=== PATIENT | male | born 1975 | race Caucasian/White ===

== ENCOUNTER 2020-04-26 09:18 | Outpatient (REF) | payer MEDICAID, SELFPAY | END 2020-04-26 09:19 | disposition home or self-care (01) | LOC: HO.LAB 09:18 | PROVIDERS: Visit Provider Internal Medicine | DX: Z20.828 Contact with and (suspected) exposure to other viral communicable diseases (principal) | CPT/HCPCS: C9803; U0003 ==

== ENCOUNTER 2023-12-08 08:49 | Outpatient (REF) | payer MEDICAID, SELFPAY ==
[2023-12-08 10:21] LABS: MANUAL DIFF FLAG NO
[2023-12-08 10:24] LABS: Basophils Percent Auto 0.7 % (0-2); Eosinophils Absolute Auto 0.1 X10*3/uL (0.0-0.4); Eosinophils Percent Auto 1.2 % (0-4); Hemoglobin 14.8 g/dl (14.0-18.0); Imm Gran Abs Auto 0.01 X10*3/uL (0.00-0.03); Imm Gran Pct Auto 0.2 % (0.0-0.4); Lymphocytes Absolute Auto 1.9 X10*3/uL (1.2-4.9); Lymphocytes Percent Auto 31.2 % (20-40); Mean Corpuscular HGB Conc 32.9 g/dl (31.0-36.0); Mean Corpuscular Hemoglobin 28.9 pg (27.0-33.0); Mean Corpuscular Volume 87.9 fL (80.0-98.0); Mean Platelet Volume 9.3 fL (9.4-12.4); Monocytes Absolute Auto 0.5 X10*3/uL (0.1-1.2); Monocytes Percent Auto 8.8 % (2-11); Neutrophils Absolute Auto 3.5 x10*3/uL (2.0-8.3); Neutrophils Percent Auto 57.9 % (45-73); Platelet Count 319 X10*3/uL (160-400); Red Blood Count 5.12 X10*6/uL (4.60-5.80); Red Cell Distribution Width 14.4 % (11.0-16.0)
[2023-12-08 11:14] LABS: Prostate Specific Antigen 0.58 ng/mL (<0.05-4.0)
[2023-12-08 11:17] LABS: Alanine Aminotransferase 39 U/L (0-40); Albumin Level 3.8 g/dL (3.5-5.0); Alkaline Phosphatase 72 U/L (39-117); Anion Gap 11 (12-20); Aspartate Amino Transferase 23 U/L (5-37); Bilirubin Total 0.5 mg/dL (0.0-1.0); Blood Urea Nitrogen 11 mg/dL (9-16); Carbon Dioxide 29 mmol/L (22-29); Chloride 104 mmol/L (96-108); Cholesterol 177 mg/dL (<200); Estimated Glomerular Filt Rate > 60; Glucose Fasting 113 mg/dL (60-99); HDL Cholesterol 39 mg/dL (>40); LDL Cholesterol Calculated 112 mg/dL (<100); Potassium 4.3 mmol/L (3.3-5.1); Sodium 140 mmol/L (135-145); Total Protein 7.4 g/dL (6.5-8.0); Triglycerides 132 mg/dL (<150); Vitamin D 25-OH Total 24.3 ng/mL (>30)
== END 2023-12-08 08:50 | disposition home or self-care (01) ==
LOC: HO.10HDL 08:49
PROVIDERS: Visit Provider Internal Medicine Medical Oncology
DX: E66.01 Morbid (severe) obesity due to excess calories (principal); E55.9 Vitamin D deficiency, unspecified; E66.9 Obesity, unspecified
CPT/HCPCS: 36415; 80053; 80061; 82306; 84153; 85025

== ENCOUNTER 2025-04-30 09:02 | Outpatient (REF) | payer MEDICAID, SELFPAY ==
--- OUTSIDE RECORDS SUMMARY | 2023-12-07 10:00 | XMS_ITS ---
Author Organization Andrey Vuong III, MD Address [address] [place] [address] [place] [address] Care Team Providers Care Senior Master Scheduler Name Role Phone Dr. Andrey Vuong III Primary Care Provider [phone] Allergies Allergen (clinical drug ingredient) Drug/Non Drug Allergy documented on EMR Reaction Allergy Type Onset Date Status No Known Drug Allergy Unknown Drug Allergy Active Results Component Value Reference Range Notes Lipid Panel Reviewed date:05/24/2024 08:15:10 AM Interpretation: Performing Lab:[address] [id number] Notes/Report: Triglycerides 132 <150 mg/dL Desirable Triglyceride: less than 150 mg/dL Borderline High Triglyceride 150-199 mg/dL High Triglyceride: 200-499 mg/dL Very High Triglyceride: greater than or equal to 5OO mg/dL Cholesterol 177 <200 mg/dL Desirable Cholesterol: less than 200 mg/dL Borderline High Cholesterol: 200-239 mg/dL High Cholesterol: greater than 239 mg/dL LDL Cholesterol Calculated 112 <100 mg/dL Desirable LDL: less than 100 mg/dL Near Optimal/Above Optimal LDL: 110-129 mg/dL Borderline High LDL: 130-159 mg/dL High LDL: 160-189 mg/dL Very High LDL: greater than or equal to 190 mg/dL HDL Cholesterol 39 >40 mg/dL Desirable HDL: greater than 40 mg/dL Note: This HDL assay may give artificially low results in patients with liver disease. Vitamin D 25-OH Total Reviewed date:05/24/2024 08:15:10 AM Interpretation: Performing Lab:[facility], [address] [place] [id number] Notes/Report: Vitamin D 25-OH Total 24.3 >30 ng/mL Health Based Reference Values* < 20 ng/mL Deficient 20-30 ng/mL Insufficient > 30 ng/mL Sufficient *Cristina BYERS. N Engl J Med. 2007;357:266-280 Care must be taken in interpreting Vitamin D results from different laboratories and methodologies. Published data demonstrated that results from patients undergoing hemodialysis may show a negative bias when tested with various automated 25-OH vitamin D assays when compared to LC-MS/MS. When testing samples from patients whose predominant form of Vitamin D is Vitamin D2, such as patients receiving Vitamin D2 supplementation, results that are subtherapeutic should be confirmed with another method such as LC-MS/MS. Reason For Referral Reason screening colonoscop y Diagnosis 1 Morbid obesity (E66. 01) Referral Organization Andrey Vuong III, MD Referring Provider First Name Andrey Referring Provider Last Name Yevgeniy Referring Provider Speciality Internal M edicine Referred Provider Andrey Nieto Referred Provider Specialty Gastroentero logy General Notes Maite Yung CM A 12/16/2023 02:57:25 PM EDT > I called Dr Nieto office made pt appt for 04/18/2024 at 1pm infomation of appt mailed to patient . Ref and progress note faxed to Dr Nieto office Referral Priority Routine Referral Appointment Date 04/18/2024 REASON FOR VISIT Morbid obesity, Chronic cough, Vitamin D deficiency Medications Medication SIG (Take, Route, Fr equency, Duration) Notes Start Date End Date Status Vitamin D 1000 units daily Act matilde Social History Tobacco Use: Social History Observation Description Date Details (start date - stop date) Never Smoker NA - NA Sex Assigned At : Social History Observation Description Sex Assigned At Male Tobacco Use/Smoking Question Answer Notes Patient is a nonsmoker Additional Findings: Tobacco Non-User Aggressive non-smoker Alcohol Screen Question Answer Notes Did you have a drink contain ing alcohol in the past year? Yes How often did you have a dri nk containing alcohol in the past year? 2 to 4 times a month (2 points) How many drinks did you have on a typical day when you were drinking in the past year? 1 or 2 drinks (0 point) How often did you have 6 or more drinks on one occasion in the past year? Never (0 point) Points 2 Interpretation Negative Vital Signs Temperature 98.0 degrees Fahrenheit 12/07/19 24 Blood pressure systolic 159 mm Hg 12/07/19 24 Blood pressure diastolic 85 mm Hg 024 Heart Rate 66 /min 12/07/2023 Height 66 in 12/07/2023 Weight 253 lbs 12/07/2023 BMI 40.83 kg/m2 12/07/2023 Encounters Encounter Location Date Provider Diagnosis Andrey Vuong III, MD [address] [place] [address] [place] [phone] 12/07/2023 Andrey Vuong Morbid obesity E66.0 1 ; Chronic cough R05 and Vitamin D deficiency E55.9 Assessments Encounter Date Diagnosis (ICD Code) Assessment Notes Treatment Notes Treatment Clinical Notes 12/07/2023 Morbid obesity (ICD-10 - E66.01) I have discussed nutrition with him at length. I recommended gradual weight loss of 1/2 pound per week through regular exercise in a diet restricted in fat calories in sodium. A fasting lipid profile will be done with regular blood work. He will be seen periodically to encourage weight loss. I have discussed a possible referral to a weight loss program at one of the local hospitals. I have recommended weight watchers. 12/07/2023 Chronic cough (ICD-10 - R05) This is a long-standing problem. He will be reinvestigated at this time. No change in therapy is necessary. 12/07/2023 Vitamin D deficiency (ICD-10 - E55.9) Comprehensive blood work will vitamin D level has been ordered. My recomdatation was to take 1000 units daily. Plan Of Treatment Medication Medication Name Sig Start Date Stop Date Notes Vitamin D 1000 units colton ly Pending Test Test Name Order Date PROFILE, FASTING (COMPREHENSIVE METABOLI C) 12/07/2023 PSA, TOTAL 12/07/2023 CBC w DIFF 12/07/2023 Referrals Referral Date Details 12/07/2023 12/07/2023, greg danielle colonoscopy , Andrey Nieto Next Appt Details Follow Up: 1 Year, Reason: a nnual exam Provider Name:Andrey Vuong , 05/07/2025 02:15:00 PM, [address] [place] [address] [address], [place], [phone], Provider Name:Andrey Vuong , 04/24/2026 11:00:00 AM, [address] [facility] [address], [place], [phone], Progress Notes * Oliverio PRIETO JrDOB: [birth year] (48 yo M)Acc No.[id number]:12/07/2023 Progress Notes Patient: Oliverio Clark Provider: Teri Vuong MD :1975 A ge:48 Y S ex:Male Date:12/07/2023 Address:[address] [place], [place] [address], [phone] Subjective: * Chief Complaints: * M orbid obesityChronic coughVitamin D deficiency * HPI: C OVID-19 Screening: He returns to the office to resume primary care. He has not been seen in several years. He says he feels healthy and well today. He has no new complaints. His body mass index is 40 but his vital signs are stable.He has had a Gutierrez virus infection for which he took Paxlovid. He is taking vitamin D.He denies any chest pain or dyspnea nausea vomiting diarrhea bleeding skin lesions or joint pain. Questions H ave you experienced fever, chills, cough, sore throat, shortness of breath, difficulty breathing, muscle aches, loss of taste or smell? N o H ave you been exposed to the virus within the last 10 days? N o H ave you travelled internationally in the last 10 days? N o H ave you been exposed to COVID-19 in the past? Y es S JONATHAN Questions: SDOH Questions I n the past year have you been worried about losing your housing? N o I n the past year have you or any family members you live with been unable to get any of the following when it was really needed? Check all that apply: N one * ROS: G eneral/Constitutional: pain o nly normal aches and pains. C hills d enies.?Fatigue a dmits. F ever d enies. E NT: Decreased hearing d enies. R espiratory: Cough n on-productive. C ardiovascular: Chest pain with exertion d enies. D yspnea on exertion?denies. S hortness of breath d enies. G astrointestinal: Constipation o ccasional. D ecreased appetite d enies. D iarrhea d enies. H eartburn d enies. N ausea d enies. R ectal bleeding d enies. V omiting d enies. H ematology: bruising d enies. p etechiae d enies. S wollen glands n one have been noted. G enitourinary: Frequent urination o nce a night. M usculoskeletal: Muscle aches d enies. P ainful joints d enies. S ciatica d enies. W eakness d enies. S kin: Itching d enies. R levar d enies. S kin lesion(s)?denies. N eurologic: Difficulty speaking d enies. D izziness d enies.?Headache d enies. L ow back pain d enies. P sychiatric: Depressed mood d enies. * Medical History: * Surgical History: V astectomy, ental extraction 2021 * Hospitalization/Major Diagno stic Procedure: D enies Past Hospitalization * Family History: F ather: 87 yrs, Diabetes mellitus, hypertension, COPD, lives in a group home, diagnosed with DM, CVD, HTN. M other: alive 83 yrs, Fractured arm, history of stroke, diagnosed with CVD. C hildren: alive. 2 sister(s) - healthy. 1 son(s) , 2 daughter(s) - healthy. . There is no history of cancer, substance abuse, addiction or mental [id number]. * Social History: T obacco Use: T obacco Use/Smoking P atient is a n onsmoker A dditional Findings: Tobacco Non-User A ggressive non-smoker D rugs/Alcohol: D rugs H ave you used drugs other than those for medical reasons in the past 12 months? N o Alcohol Screen D id you have a drink containing alcohol in the past year? Y es H ow often did you have a drink containing alcohol in the past year? 2 to 4 times a month (2 points) H ow many drinks did you have on a typical day when you were drinking in the past year? 1 or 2 drinks (0 point) H ow often did you have 6 or more drinks on one occasion in the past year? 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 He has no occupational exposures. He is to Nisha. He has 3 children, 2 sons and a daughter. He was born in [place]. * Medications: T akingVitamin D , Notes: 1000 units dailyTaking Vitamin D , Notes: 1000 units dailyDiscontinuedPaxlovid (300/100) 20 x 150 MG & 10 x 100MG Tablet Therapy Pack as directed Orally twice a dayMedication List reviewed and reconciled with the patientDiscontinued Paxlovid (300/100) 20 x 150 MG & 10 x 100MG Tablet Therapy Pack as directed Orally twice a dayMedication List reviewed and reconciled with the patient * Allergies: N o Known Drug Allergyno[Allergies Verified] Objective: * Vitals: H t: 66, Wt: 253, BMI:40.83, BP: 159/85, HR: 66, Temp: 98.0, [id number]. * Examination: G eneral Examination: GENERAL APPEARANCE: p leasant, well nourished, well developed, in no acute distress, calm and relaxed , morbidly obese , man. HEAD: a traumatic, normocephalic. EYES: e nathen, perrla, anicteric, conjugate. EARS: n ormal. NOSE: s eptum intact. ORAL CAVITY: n ormal, unremarkable. NECK/THYROID: n o jugular venous distention, no carotid bruit, thyroid normal. LYMPH NODES: n o enlarged lymph nodes,spleen normal. SKIN: n o suspicious lesions, anicteric. HEART: n o clicks, gallops, murmurs, or rubs, regular rhythm, S1, S2 normal, no s3, or vascular bruits. LUNGS: c lear to auscultation . BREASTS: no masses palpable bilaterally. ABDOMEN: b owel sounds normal, no ascites, no organomegaly, no mass. RECTAL EXAM: D eferred to upcoming colonoscopy. MUSCULOSKELETAL: e xtremities unremarkable, no clubbing, cyanosis or edema. PERIPHERAL PULSES: n ormal. NEUROLOGIC: a lert and oriented, cranial nerves 2-12 grossly intact, deep tendon reflexes 2+ symmetrical, motor strength normal upper and lower extremities, sensory exam intact. PSYCH: a lert, oriented , thought process logical, goal directed , speech clear , mood/affect full range , judgement and insight good , good eye contact , cooperative with exam , cognitive function intact. Assessment: * Assessment: 1. Danielle orbid obesity - E66.01 (Primary), I have discussed nutrition with him at length. I recommended gradual weight loss of 1/2 pound per week through regular exercise in a diet restricted in fat calories in sodium. A fasting lipid profile will be done with regular blood work. He will be seen periodically to encourage weight loss. I have discussed a possible referral to a weight loss program at one of the local hospitals. I have recommended weight watchers. 2 . C hronic cough - R05, This is a long-standing problem. He will be reinvestigated at this time. No change in therapy is necessary. 3 . V itamin D deficiency - E55.9, Comprehensive blood work will vitamin D level has been ordered. My recomdatation was to take 1000 units daily. Plan: * Treatment: Value Reference Range T riglycerides 132 <150 - mg/dL * C holesterol 177 <200 - mg/dL * L DL Cholesterol Calculated 112 H <100 - mg/dL * H DL Cholesterol 39 L >40 - mg/dL ?LAB: Vitamin D 25-OH Total* Value Reference Range V itamin D 25-OH Total 24.3 L >30 - ng/mL ? Referral To:Andrey Nieto??Gastroenterology ?Reason:screening colonoscopy 2.?Vitamin D deficiency?LAB: PROFILE, FASTING (COMPREHENSIVE METABOLIC) ?LAB: PSA, TOTAL ?LAB: CBC w DIFF ?LAB: Lipid Panel* Value Reference Range T riglycerides 132 <150 - mg/dL * C holesterol 177 <200 - mg/dL * L DL Cholesterol Calculated 112 H <100 - mg/dL * H DL Cholesterol 39 L >40 - mg/dL ?LAB: Vitamin D 25-OH Total* Value Reference Range V itamin D 25-OH Total 24.3 L >30 - ng/mL * Procedure Codes: * Preventive Medicine: Counseling: C are goal follow-up plan: Counseling for abnormal BMI given Y es Above Normal BMI Follow-up D ietary management education, guidance, and counseling, Dietary needs education, Exercise promotion: strength training, Exercise promotion: stretching, Feeding regime, Giving encouragement to exercise, Lifestyle education regarding diet, Nutrition / feeding management, Nutrition therapy, Prescribed activity/exercise education, Prescribed diet education, Prescribed dietary intake, Special diet education, Weight monitoring , Intervention, Order not done: Medical or Other reason not done * Follow Up: 1 Year (Reason: annual exam) * Images: * Sign off status: Completed true * Provider: Teri Vuong MD Date: 0 12/07/2023 Generated for Printi ng/Facharlyg/eTransmitting on: 1 07/01/2024 10:32 AM EST History and Physical Notes * HPI (History of Present Illness) Category Sub-Category Detail Notes COVID-19 Screening Questions Have you had any new onset fever, chills, cough, congestion, sore throat, shortness of breath, muscle aches?: No Have you been exposed to the virus withi n the last 10 days?: No Have you travelled internationally in [facility] last 10 days?: No Have you been exposed to COVID-19 in the past?: Yes SDOH Questions SDOH Questions In the past year have you been worried about losing your housing?: No In the past year have you or any family members you live with been unable to get any of the following when it was really needed? Check all that apply:: None Examination Category Sub-Category Detail Notes General Examination GENERAL APPEARANCE: pleasant , well nourished, well developed, in no acute distress, calm and relaxed , morbidly obese , man HEAD: atraumatic, normocep halic EYES: eomi, perrla, anicte erin, conjugate EARS: normal NOSE: septum intact NECK/THYROID: no jugular venous di stention, no carotid bruit, thyroid normal HEART: no clicks, gallops, murmurs, or rubs, regular rhythm, S1, S2 normal, no s3, or vascular bruits LUNGS: clear to auscultatio n ABDOMEN: bowel sounds normal, no ascites, no organomegaly, no mass NEUROLOGIC: alert and oriented, cranial nerves 2-12 grossly intact, deep tendon reflexes 2+ symmetrical, motor strength normal upper and lower extremities, sensory exam intact SKIN: no suspicious lesion s, anicteric PERIPHERAL PULSES: normal BREASTS: no masses palpable b ilaterally MUSCULOSKELETAL: extremities unremark able, no clubbing, cyanosis or edema LYMPH NODES: no enlarged lymph no ellen,spleen normal RECTAL EXAM: Deferred to upcoming colonoscopy PSYCH: alert, oriented , th ought process logical, goal directed , speech clear , mood/affect full range , judgement and insight good , good eye contact , cooperative with exam , cognitive function intact ORAL CAVITY: normal, unremarkable Consultation Request Notes Referral Date Referring Provider Referred Provider Not es 12/07/2023 Andrey Vuong Robert screening col onoscopy
[2025-04-30 09:26] LABS: MANUAL DIFF FLAG NO
[2025-04-30 09:46] LABS: Hematocrit 47.2 % (42.0-52.0); Hemoglobin 15.5 g/dl (14.0-18.0); Imm Gran Abs Auto 0.01 X10*3/uL (0.00-0.03); Imm Gran Pct Auto 0.2 % (0.0-0.4); Lymphocytes Absolute Auto 1.6 X10*3/uL (1.2-4.9); Mean Corpuscular HGB Conc 32.8 g/dl (31.0-36.0); Mean Corpuscular Hemoglobin 28.5 pg (27.0-33.0); Mean Corpuscular Volume 86.9 fL (80.0-98.0); NRBC Abs Auto 0.000 X10*3/uL (0.0-0.012); NRBC Pct Auto 0.0 /100WBC (0.0-0.2); Platelet Count 316 X10*3/uL (160-400); Red Blood Count 5.43 X10*6/uL (4.60-5.80); White Blood Count 5.6 X10*3/uL (4.8-10.8)
[2025-04-30 10:31] LABS: Alanine Aminotransferase 59 U/L (0-40); Albumin Level 4.2 g/dL (3.5-5.0); Alkaline Phosphatase 86 U/L (39-117); Anion Gap 11 (12-20); Aspartate Amino Transferase 40 U/L (5-37); Blood Urea Nitrogen 15 mg/dL (9-16); Calcium 9.1 mg/dL (8.4-10.2); Carbon Dioxide 28 mmol/L (22-29); Chloride 106 mmol/L (96-108); Cholesterol 185 mg/dL (<200); Estimated Glomerular Filt Rate > 60; HDL Cholesterol 43 mg/dL (>40); Potassium 4.7 mmol/L (3.3-5.1); Sodium 140 mmol/L (135-145); Total Protein 7.8 g/dL (6.5-8.0); Triglycerides 101 mg/dL (<150)
[2025-04-30 10:42] LABS: Prostate Specific Antigen 0.77 ng/mL (<0.05-4.0)
== END 2025-04-30 09:03 | disposition home or self-care (01) ==
LOC: HO.LAB 09:02
PROVIDERS: PCP Internal Medicine Medical Oncology; Visit Provider Internal Medicine Medical Oncology
DX: Z00.00 Encounter for general adult medical examination without abnormal findings (principal); N40.0 Benign prostatic hyperplasia without lower urinary tract symptoms; E66.01 Morbid (severe) obesity due to excess calories; E55.9 Vitamin D deficiency, unspecified
CPT/HCPCS: 36415; 80053; 80061; 82306; 84153; 85025